=== PATIENT | male | born 1985 | race Caucasian/White ===

== ENCOUNTER 2018-09-25 13:00 | Emergency (ER) | payer OTHER ==
[~2018-09-25] VITALS: Ht 172.7 cm; Wt 90.7 kg
[2018-09-25 13:37] VITALS: BP 126/79
--- NOTE | 2018-09-25 13:43 | NUR ---
PT TO LOBBY VIA WHEELCHAIR, VSS.
--- NOTE | 2018-09-25 15:09 | NUR ---
PATIENT WHEELCHAIRED TO ER BED 8
--- NOTE | 2018-09-25 15:30 | NUR ---
PT FELL FROM LADDER AT 1100 C/O PAIN TO LEFT BOTTOM FOOT, C/O PAIN TO BL BUTTOCKS. DENIES N/V/D; PT DENIES ANY FEVER, CP, SOB, OR COUGH AT THIS TIME; PATIENT STATES PAIN OF 10/10 AT THIS TIME; VSS; PATIENT POSITIONED FOR COMFORT; HOB ELEVATED; BEDRAILS UP X1; BED DOWN. ER MD MADE AWARE OF PT STATUS.
[2018-09-25] MEDS ORDERED: KETOROLAC 60 MG/2 ML VIAL IM ONE (15:40)
[2018-09-25 17:39] VITALS: BP 119/69
--- NOTE | 2018-09-25 17:39 | NUR ---
Patient discharged with v/s stable. Written and verbal after care instructions given and explained. Patient alert, oriented and verbalized understanding of instructions. Ambulatory with [facility]. All questions addressed prior to discharge. ID band removed. Patient advised to follow up with PMD. Rx of Roland and Ibuprofen given. Patient educated on indication of medication including possible reaction and side effects. Opportunity to ask questions provided and answered.
== END 2018-09-25 17:39 | disposition home or self-care (01) ==
LOC: MED 13:00
DX: S90.32XA Contusion of left foot, initial encounter (principal); W11.XXXA Fall on and from ladder, initial encounter; Y93.89 Activity, other specified; Y92.89 Other specified places as the place of occurrence of the external cause; Y99.8 Other external cause status
CPT/HCPCS: 29515; 73610; 73650; 96372; 99283; J1885; Q0092